=== PATIENT | female | born 1935 | race Caucasian/White ===

== ENCOUNTER 2016-11-17 05:08 | Inpatient (IN) | payer MEDICARE ==
[2016-11-17] VITALS (14 sets, daily range): BP systolic 62–231; BP diastolic 48–127; PULSE 38–120; RESP 16; TEMP 98.4; O2SAT 95–100
[~2016-11-17] VITALS: Ht 172.7 cm; Wt 55.0 kg
[~2016-11-17 05:08] MED LIST: ACET325T PO; AMIO200T PO; DIGO0.12 PO; DONE5TAB7 PO; FLUDROCORT PO; LORA1TAB12 PO; MACR100C2 PO; MECL-62 PO; METH1TAB2 PO; MILKSUS PO; MULT1TAB84 PO; PARO1TAB72 PO; POLY3350; POTA10CA PO; SERO25TA PO; WARF-58 PO
[2016-11-17] MEDS ORDERED: SODIUM CHLORIDE 0.9% FLUSH 5 ML FLUSH IVF PRN (05:45)
[2016-11-17] MEDS ORDERED: NOREPINEPHRINE 4 MG/4 ML AMP ONE (05:51)
[2016-11-17 06:21] LABS: BLOOD GAS BASE EXCESS 0.8 mmol/L (-2-2); BLOOD GAS HCO3 26 mmol/L (22-26); BLOOD GAS METHEMOGLOBIN 1.9 % (0-2); BLOOD GAS O2 HGB SATURATION 96 % (90-100); BLOOD GAS OXYGEN CONTENT 16.9 Vol % (12.0-20.0); BLOOD GAS PCO2 46 mmHg (38-42); BLOOD GAS PO2 267 mmHG (61-120); BLOOD GAS TOTAL HGB 12.1 G/DL (12.0-16.0); CRITICAL VALUE NO; OXYGEN DEVICE VENTILATOR; TEMP CORR TO 98.6
[2016-11-17 06:22] LABS: DRAW SITE RT FEMORAL; FIO2 100 %; NUMBER OF ARTERIAL PUNCTURES 1; STAT YES
[2016-11-17 06:36] LABS: AUTOMATED NEUTROPHIL # 10.1 TH/MM3 (1.8-7.7); BASOPHIL % 0.2 % (0.0-2.0); EOSINOPHIL % 0.1 % (0.0-4.0); HEMO FLAGS DIFF FINAL; LYMPH % 8.8 % (9.0-44.0); MEAN CELL VOLUME 89.1 FL (80.0-100.0); MEAN CORPUSCULAR HEMOGLOBIN 29.7 PG (27.0-34.0); MEAN CORPUSCULAR HGB CONC 33.3 % (32.0-36.0); MONO % 4.6 % (0.0-8.0); NEUT % 86.3 % (16.0-70.0); PLATELET COUNT 230 TH/MM3 (150-450); RED BLOOD COUNT 3.93 MIL/MM3 (4.00-5.30); RED CELL DISTRIBUTION WIDTH 13.9 % (11.6-17.2); WHITE BLOOD COUNT 11.7 TH/MM3 (4.0-11.0)
[2016-11-17 06:45] LABS: BACTERIA, URINE RARE /hpf; BLOOD, URINE SMALL (NEG); COMMENT (UR) CATH-CULTURE IND; CULTURE IF INDICATED CATH CULTURE IND; GLUCOSE,URINE 70 mg/dL (NEG); KETONE, URINE TRACE mg/dL (NEG); NITRITE,URINE NEG (NEG); URINE COLOR LIGHT-YELLOW (YELLW/STRAW)
[2016-11-17] MEDS ORDERED: VANCOMYCIN INJ 1,000 MG in SODIUM CHLOR 0.9% 250 ML INJ 250 ML IV ONE (06:45)
[2016-11-17] MEDS ORDERED: PIPERACIL-TAZO 3.375 GM PREMIX 50 ML IV ONE (06:45)
[2016-11-17] MEDS ORDERED: SUCCINYLCHOLINE CHLORIDE 200 MG/10 ML VIAL IV PUSH ONE (06:45)
--- NOTE | 2016-11-17 06:47 | PD ---
HPI Chief Complaint: Code Blue Time Seen by Provider: 05:37 Travel History International Travel<30 days: No Contact w/Intl Traveler<30days: No Traveled to known affect area: No History of Present Illness HPI Patient is an 81-year-old female [facility]. Patient was last seen at 2 AM, was noticed unresponsive at 5 AM by [facility] staff. EMS placed a Combitube after to intubation attempts. As EMS was coming to the hospital, patient became a cardiac. Patient is unresponsive and cannot provide any history. PFSH Past Medical History Hx Anticoagulant Therapy: Yes Atrial Fibrillation: Yes Anxiety: Yes Depression: Yes Heart Rhythm Problems: Yes (A-FIB) Cancer: No Cardiovascular Problems: Yes High Cholesterol: No Chemotherapy: No Chest Pain: No Congestive Heart Failure: No Cerebrovascular Accident: Yes (TIA 4 + Years ago) Diabetes: No Diminished Hearing: No Endocrine: No Gastrointestinal Disorders: No Genitourinary: Yes (PELVIC DYSFUNCTION, UTI) Hypertension: No Immune Disorder: No Implanted Vascular Access Dvce: No Musculoskeletal: No Neurologic: Yes Psychiatric: No Reproductive: No Respiratory: No Immunizations Current: Yes Ulcer: Yes ?: Not Menopausal: Yes : 3 Para: 3 Past Surgical History Cardiac Surgery: Yes (MITRAL VALVE REPLACEMENT) Coronary Artery Bypass Graft: Yes Gynecologic Surgery: Yes (HYSTERECTOMY partial) Hysterectomy: Yes (PARTIAL) Tonsillectomy: Yes Valve Replacement: Yes (MITRAL VALVE REPLACEMENT) Other Surgery: Yes (jj valve,cataracts bilat,hysterectomy) Social History Alcohol Use: Yes (OCCASIONALLY) Tobacco Use: No Substance Use: No Allergies-Medications (Allergen,Severity, Reaction): Coded Allergies: Sulfa (Verified Allergy, Unknown, 09/23/16) Demerol (Verified Adverse Reaction, Unknown, 09/23/16) GI UPSET, NAUSEA/VOMITING Reported Meds & Prescriptions Reported Meds & Active Scripts Active Macrobid (Nitrofurantoin Monoh/Nitrofur Macro) 100 Mg Cap 100 Mg PO BID 7 Days Reported Seroquel (Quetiapine Fumarate) 25 Mg Tab 25 Mg PO HS Warfarin 3 Mg Tab 3 Mg PO DAILY Warfarin 3 Mg Tab 3 Mg PO DAILY Amiodarone (Amiodarone HCl) 200 Mg Tab 200 Mg PO DAILY Acetaminophen 325 Mg Tab 650 Mg PO Q4-6H PRN Milk of Magnesia Liq (Magnesium Hydroxide) 400 Mg/5 Ml Susp 30 Ml PO ONCE Meclizine (Meclizine HCl) 25 Mg Tab 25 Mg PO TID PRN Paroxetine (Paroxetine HCl) 20 Mg Tab 20 Mg PO DAILY Potassium Chloride ER (Potassium Chloride) 10 Meq Cap 10 Meq PO DAILY Polyethylene Glycol 3350 1 Pow Pow Multivitamin Adults (Multiple Vitamins W/ Minerals) 1 Tab 1 Tab PO DAILY Methenamine Hippurate 1 Gm Tab 1 Gm PO BID Lorazepam 1 Mg Tab 1 Mg PO HS [Fludrocort] 0.1 Mg PO BID Donepezil 5 Mg Tab 5 Mg PO HS Digoxin 0.125 Mg Tab 0.125 Mg PO DAILY Review of Systems ROS Limitations: Clinical Condition, Unresponsive Physical Exam Exam Limitations: Clinical Condition Narrative GENERAL: Unresponsive SKIN: Warm and dry. HEAD: Atraumatic. Normocephalic. EYES: Fixed and dilated ENT: Mucous membranes pink and moist. NECK: Trachea midline. No JVD. CARDIOVASCULAR: Irregular RESPIRATORY: Clear to auscultation. Breath sounds equal bilaterally. GASTROINTESTINAL: Distended, full of air. MUSCULOSKELETAL: No obvious deformities. No clubbing. No cyanosis. No edema. NEUROLOGICAL: Unresponsive, does not move any of her extremities. Data Data Last Documented VS Vital Signs Date Time Temp Pulse Resp B/P Pulse Ox O2 Delivery O2 Flow Rate FiO2 11/17/16 06:43 100 100 11/17/16 06:30 112 16 117/67 Ventilator 15 11/17/16 05:37 98.4 Orders Complete Blood Count With Diff (11/17/16 05:37) Comprehensive Metabolic Panel (11/17/16 05:37) Creatine Kinase (Cpk) (11/17/16 05:37) Prothrombin Time / Inr (Pt) (11/17/16 05:37) Act Partial Throm Time (Ptt) (11/17/16 05:37) Troponin I (11/17/16 05:37) Lactic Acid Sepsis Protocol (11/17/16 05:37) Urinalysis - C+S If Indicated (11/17/16 05:37) Ua Includes Microscopic (11/17/16 05:37) Blood Culture (11/17/16 05:37) Chest, Single Ap (11/17/16 05:37) Ct Brain W/O Iv Contrast(Rout) (11/17/16 05:37) Blood Glucose (11/17/16 05:37) Ecg Monitoring (11/17/16 05:37) Iv Access Insert/Monitor (11/17/16 05:37) Oximetry (11/17/16 05:37) Oxygen Administration (11/17/16 05:37) Urinary Catheter Insert/Apply (11/17/16 05:37) Sodium Chloride 0.9% Flush (Ns Flush) (11/17/16 05:45) Electrocardiogram (11/17/16 05:37) Norepinephrine Inj (Levophed Inj) (11/17/16 05:51) Arterial Blood Gas (Abg) (11/17/16 06:14) Succinylcholine Inj (Quelicin Inj) (11/17/16 06:45) Piperacil-Tazo 3.375 Gm Premix (Zosyn 3. (11/17/16 06:45) Vancomycin Inj (Vancomycin Inj) (11/17/16 06:45) Type And Screen (11/17/16 06:37) Urine Culture (11/17/16 05:30) Blood Product Administration .UPON TRANSFUSION (11/17/16 06:49) Sodium Chlor 0.9% 250 Ml Inj (Ns 250 Ml (11/17/16 07:00) Admit Order (Ed Use Only) (11/17/16 ) Labs Laboratory Tests Test 11/17/16 11/17/16 11/17/16 11/17/16 05:30 06:13 06:14 06:17 Urine Color LIGHT-YELLOW Urine Turbidity CLEAR Urine pH 8.0 Urine Specific [place] 1.007 Urine Protein 30 mg/dL Urine Glucose (UA) 70 mg/dL Urine Ketones TRACE mg/dL Urine Occult Blood SMALL Urine Nitrite NEG Urine Bilirubin NEG Urine Urobilinogen LESS THAN 2.0 MG/DL Urine Leukocyte Esterase NEG Urine RBC 2 /hpf Urine WBC LESS THAN 1 /hpf Urine Bacteria RARE /hpf Microscopic Urinalysis Comment CATH-CULTURE IND Sodium Level 139 MEQ/L Potassium Level 2.6 MEQ/L Chloride Level 99 MEQ/L Carbon Dioxide Level 27.3 MEQ/L Anion Gap 13 MEQ/L Blood Urea Nitrogen 11 MG/DL Creatinine 1.10 MG/DL Estimat Glomerular Filtration 48 ML/MIN Rate Random Glucose 277 MG/DL Calcium Level 7.6 MG/DL Total Bilirubin 0.8 MG/DL Aspartate Amino Transf 49 U/L (AST/SGOT) Alanine Aminotransferase 51 U/L (ALT/SGPT) Alkaline Phosphatase 34 U/L Total Creatine Kinase 72 U/L Troponin I 0.12 NG/ML Total Protein 6.6 GM/DL Albumin 3.4 GM/DL White Blood Count 11.7 TH/MM3 Red Blood Count 3.93 MIL/MM3 Hemoglobin 11.7 GM/DL Hematocrit 35.0 % Mean Corpuscular Volume 89.1 FL Mean Corpuscular Hemoglobin 29.7 PG Mean Corpuscular Hemoglobin 33.3 % Concent Red Cell Distribution Width 13.9 % Platelet Count 230 TH/MM3 Mean Platelet Volume 7.3 FL Neutrophils (%) (Auto) 86.3 % Lymphocytes (%) (Auto) 8.8 % Monocytes (%) (Auto) 4.6 % Eosinophils (%) (Auto) 0.1 % Basophils (%) (Auto) 0.2 % Neutrophils # (Auto) 10.1 TH/MM3 Lymphocytes # (Auto) 1.0 TH/MM3 Monocytes # (Auto) 0.5 TH/MM3 Eosinophils # (Auto) 0.0 TH/MM3 Basophils # (Auto) 0.0 TH/MM3 CBC Comment DIFF FINAL Differential Comment Prothrombin Time 49.0 SEC Prothromb Time International 4.2 RATIO Ratio Activated Partial 36.2 SEC Thromboplast Time Blood Gas Puncture Site RT FEMORAL Blood Gas Patient Temperature 98.6 Blood Gas HCO3 26 mmol/L Blood Gas Base Excess 0.8 mmol/L Blood Gas Oxygen Saturation 96 % Arterial Blood pH 7.36 Arterial Blood Partial 46 mmHg Pressure CO2 Arterial Blood Partial 267 mmHG Pressure O2 Arterial Blood Oxygen Content 16.9 Vol % Arterial Blood 2.0 % Carboxyhemoglobin Arterial Blood Methemoglobin 1.9 % Blood Gas Hemoglobin 12.1 G/DL Oxygen Delivery Device VENTILATOR Blood Gas Ventilator Setting Blood Gas Inspired Oxygen 100 % Lactic Acid Level 3.8 mmol/L Test 11/17/16 11/17/16 06:20 06:49 Blood Type A POSITIVE Antibody Screen NEGATIVE Blood Bank Comment [facility] Medical Decision Making Medical Screen Exam Complete: Yes Emergency Medical Condition: Yes Medical Record Reviewed: Yes Interpretation(s) ECG shows sinus tachycardia with frequent PVCs. Differential Diagnosis ICH versus ACS versus sepsis Narrative Course Patient is a 81-year-old female brought in by EMS unresponsive. EMS was bagging the patient via Combitube. Upon transfer to the hospital stretcher, patient lost her pulse. CPR was begun immediately. Patient given 1 dose of epi. After about 3 minutes, she had return of spontaneous circulation. Patient was then intubated without incident. She is placed on the ventilator. Monitored on the cardiac catheterization technician. There was crepitus present in her neck presumably from 2 prior intubation attempts by EMS/ CPR, so femoral line was placed. Patient became hypotensive, she was started on Levophed. Chest x-ray performed confirmed tube placement. Labs sent show an INR of 4.2, lactic acid is 3.8. Patient taken for CT of her head which showed massive intracranial bleed, with midline shift. FFP ordered for Coumadin reversal. Patient admitted for further management. Critical Care Narrative Aggregate critical care time was 60 minutes. Time to perform other separately billable procedures was not included in the critical care time. My time did not include minutes spent treating any other patients simultaneously or on activities that did not directly contribute to the patient's treatment. The services I provided to this patient were to treat and/or prevent clinically significant deterioration that could result in: Morbidity and mortality I provided critical care services requiring my management, as noted below: Chart data review, documentation time, medication orders and management, vital sign assessments/reviewing monitor data, ordering and reviewing lab tests, ordering and interpreting/reviewing x-rays and diagnostic studies, care of the patient and discussion of the patient with the admitting physicians. Procedures Procedure Narrative After the risks and benefits were discussed the following procedure was performed: INTUBATION: The patient was put in optimal position for the procedure. Rapid sequence intubation was initiated by me using 80 milligrams of succinylcholine IV. The patient was intubated with a 8.0 cuffed endotracheal tube. Tube placement was confirmed by visualization of the tube and balloon passing through the cords, capnometry and subsequent chest x-ray. Breath sounds were equal and well aerated bilaterally postintubation. No breath sounds over stomach. Patient tolerated procedure well. CENTRAL VENOUS LINE: The site was prepped with Betadine and sterilely draped. It was infiltrated with 1% lidocaine plain. The deep vein was cannulated using normal Seldinger technique. A triple lumen central line was placed in the left femoral vein site and secured with simple interrupted suture. The site was sterilely dressed. The patient tolerated the procedure well. Diagnosis Primary Impression: Intracranial bleed Additional Impressions: Cardiac arrest Respiratory failure Qualified Code: J96.00 - Acute respiratory failure, unspecified whether with hypoxia or hypercapnia Admitting Information Admitting Physician Requests: Admit Condition: Serious Jossy Ren MD Nov 17, 2016 06:47
[2016-11-17 06:51] LABS: APTT (PATIENT) 36.2 SEC (24.3-30.1); INTERNATIONAL NORMALIZED RATIO 4.2 RATIO
[2016-11-17] MEDS ORDERED: SODIUM CHLOR 0.9% 250 ML INJ 250 ML IV ONE (07:00)
--- NOTE | 2016-11-17 07:01 | RADRPT ---
EXAM DATE/TIME: 11/17/2016 06:14 [facility] COMPARISON: CHEST SINGLE AP, September 23, 2016, 22:34. INDICATIONS : E-T tube placement. MEDICAL HISTORY : Stroke. Cardiovascular disease. Myocardial infarction. SURGICAL HISTORY : Hysterectomy. CABG. ENCOUNTER: Initial ACUITY: 1 day PAIN SCORE: Non-responsive. LOCATION: Bilateral chest FINDINGS: The cardiac silhouette is enlarged in transverse diameter. Endotracheal tube is in good position abov e the campbell. There are biapical pneumothoraces without tension. There is extensive subcutaneous emph ysema in the super clavicular regions bilaterally with pneumomediastinum. There is no evidence of pn eumonia. CONCLUSION: 1. Satisfactory position of endotracheal tube as above. Biapical pneumothoraces without tension. Exte nsive subcutaneous emphysema. 2. Pneumomediastinum. Esvin Valera MD on November 17, 2016 at 6:54 Board Certified Radiologist. This report was verified electronically. 3.
--- NOTE | 2016-11-17 07:05 | RADRPT ---
EXAM DATE/TIME: 11/17/2016 06:39 [facility] COMPARISON: CT BRAIN W/O CONTRAST, September 29, 2016, 16:11. INDICATIONS : Altered mental status. RADIATION DOSE: 56.35 CTDIvol (mGy) MEDICAL HISTORY : Non-responsive. SURGICAL HISTORY : Non-responsive. ENCOUNTER: Initial ACUITY: 1 day PAIN SCALE: Non-responsive LOCATION: cranial TECHNIQUE: Multiple contiguous axial images were obtained of the head. Using automated exposure control and adj ustment of the mA and/or kV according to patient size, radiation dose was kept as low as reasonably a chievable to obtain optimal diagnostic quality images. FINDINGS: There is a large extra-axial fluid collection over the right cerebral convexity measuring 2.1 cm in d iameter with marked mass effect and midline shift of 1.2 cm. There is uncal herniation with hemorrhag e involving the kevin at the level of the colliculi. There is extensive chronic ischemic change in the periventricular white matter. The cerebellar hemispheres are unremarkable. A small parafalcine subdu ral hematoma is also present. CONCLUSION: 1. Large acute extra-axial fluid collection as above with marked mass effect and herniation. 2. Brainstem hemorrhage is also present. Esvin Valera MD on November 17, 2016 at 6:59 Board Certified Radiologist. This report was verified electronically.
[2016-11-17 07:12] LABS: ALKALINE PHOSPHATASE 34 U/L (45-117); ALT (GPT) 51 U/L (10-53); ANION GAP 13 MEQ/L (5-15); AST (GOT) 49 U/L (15-37); BICARBONATE 27.3 MEQ/L (21.0-32.0); BLOOD UREA NITROGEN 11 MG/DL (7-18); CHLORIDE 99 MEQ/L (98-107); GLOMERULAR FILTRATION RATE 48 ML/MIN (>89); SODIUM (NA) 139 MEQ/L (136-145); TOTAL BILIRUBIN ADULT 0.8 MG/DL (0.2-1.0)
[2016-11-17 07:21] LABS: CREATINE KINASE 72 U/L (26-192)
[2016-11-17 07:22] LABS: POTASSIUM 2.6 MEQ/L (3.5-5.1)
[2016-11-17] MEDS ORDERED: LORazepam 2 MG/ML VIAL IV PUSH ONE (07:45)
[2016-11-17] MEDS ORDERED: MORPHINE SULFATE 8 MG/ML INJ IV PUSH ONE (07:46)
--- NOTE | 2016-11-17 07:47 | HHI.HP ---
HPI Service Critical Care Medicine Primary Care Physician Unknown Admission Diagnosis Intracranial hemmorhage Diagnosis: Chief Complaint: unresponsive Travel History International Travel<30 Days: No Contact w/Intl Traveler <30 Da: No Traveled to Known Affected Are: No History of Present Illness This is an 81-year-old female who per the chart has a history of mitral valve replacement and chronic anticoagulation who presented unresponsive at 5 AM. EMS was called and placed Combitube. At this point she went into cardiac arrest and out of hospital CPR was performed, and ROSC was obtained. She was brought into the [place] emergency department where she was intubated. Stat head CT demonstrated massive intracranial hemorrhage with evidence of mass effect on the third and fourth ventricles with early transtentorial herniation. Critical-care medicine was consulted for evaluation and management of her life -threatening intracranial hemorrhage. Review of Systems ROS Limitations: Clinical Condition, Intubated, Altered Mental Status, Unresponsive Past Family Social History Allergies: Coded Allergies: Sulfa (Verified Allergy, Unknown, 09/23/16) Demerol (Verified Adverse Reaction, Unknown, 09/23/16) GI UPSET, NAUSEA/VOMITING Past Medical History Unobtainable secondary to clinical condition. Per chart review: Atrial fibrillation Anxiety Depression Anticoagulation use TIA 4 years ago Pelvic dysfunction UTI Past Surgical History Unobtainable secondary to clinical condition. Per chart review: Mitral valve replacement CABG Hysterectomy Tonsillectomy Cataracts Reported Medications Unobtainable secondary to clinical condition. Per chart review: Seroquel (Quetiapine Fumarate) 25 Mg Tab 25 Mg PO HS Warfarin 3 Mg Tab 3 Mg PO DAILY Warfarin 3 Mg Tab 3 Mg PO DAILY Amiodarone (Amiodarone HCl) 200 Mg Tab 200 Mg PO DAILY Acetaminophen 325 Mg Tab 650 Mg PO Q4-6H PRN Milk of Magnesia Liq (Magnesium Hydroxide) 400 Mg/5 Ml Susp 30 Ml PO ONCE Meclizine (Meclizine HCl) 25 Mg Tab 25 Mg PO TID PRN Paroxetine (Paroxetine HCl) 20 Mg Tab 20 Mg PO DAILY Potassium Chloride ER (Potassium Chloride) 10 Meq Cap 10 Meq PO DAILY Polyethylene Glycol 3350 1 Pow Pow Multivitamin Adults (Multiple Vitamins W/ Minerals) 1 Tab 1 Tab PO DAILY Methenamine Hippurate 1 Gm Tab 1 Gm PO BID Lorazepam 1 Mg Tab 1 Mg PO HS [Fludrocort] 0.1 Mg PO BID Donepezil 5 Mg Tab 5 Mg PO HS Digoxin 0.125 Mg Tab 0.125 Mg PO DAILY Active Ordered Medications See MAR Family History Unknown and unobtainable secondary to the patient's clinical condition. Social History Unobtainable secondary to clinical condition. Per chart review: occasional etoh, no tob. Physical Exam Vital Signs Vital Signs Date Time Temp Pulse Resp B/P Pulse Ox O2 Delivery O2 Flow Rate FiO2 11/17/16 06:43 100 100 11/17/16 06:30 112 16 117/67 100 Ventilator 15 11/17/16 06:21 100 Ventilator 15 11/17/16 06:15 120 16 120/70 100 Ventilator 15 11/17/16 06:00 98 16 91/54 100 Ventilator 15 11/17/16 05:50 112 16 62/48 100 Ventilator 15 11/17/16 05:40 110 16 79/55 100 Ventilator 15 11/17/16 05:37 98.4 38 16 231/114 95 11/17/16 05:30 96 100 11/17/16 05:30 100 16 119/80 100 Ventilator 15 11/17/16 05:29 98 11/17/16 05:20 88 16 215/127 99 Ventilator 15 11/17/16 05:10 38 16 231/114 98 Ventilator 15 Physical Exam GENERAL: Elderly female, lying in bed, intubated, critically ill HEENT: NCAT. Pupils 4 mm, conjugate, minimally reactive. Negative ocular cephalic reflex. mucous membranes moist. NECK: Trachea is midline. There is no JVD. CHEST: Equal chest rise. Clear to auscultation. CARDIOVASCULAR: Tachycardic rate, regular rhythm with frequent PVCs. On norepinephrine. ABDOMEN: Soft, nontender, nondistended. No guarding. MUSCULOSKELETAL: Peripheral edema. Distal pulses 2+. NEUROLOGICAL: GCS 3. RASS -5. No movement at all to deep nail bed pressure in all 4 extremities. Negative gag, negative corneals, positive weak cough. Negative ocular cephalic reflex. Laboratory Laboratory Tests Test 11/17/16 11/17/16 11/17/16 05:30 06:14 06:17 Urine Color LIGHT-YELLOW Urine Turbidity CLEAR Urine pH 8.0 Urine Specific [place] 1.007 Urine Protein 30 Urine Glucose (UA) 70 Urine Ketones TRACE Urine Occult Blood SMALL Urine Nitrite NEG Urine Bilirubin NEG Urine Urobilinogen LESS THAN 2.0 Urine Leukocyte Esterase NEG Urine RBC 2 Urine WBC LESS THAN 1 Urine Bacteria RARE Microscopic Urinalysis Comment CATH-CULTURE IND White Blood Count 11.7 Red Blood Count 3.93 Hemoglobin 11.7 Hematocrit 35.0 Mean Corpuscular Volume 89.1 Mean Corpuscular Hemoglobin 29.7 Mean Corpuscular Hemoglobin 33.3 Concent Red Cell Distribution Width 13.9 Platelet Count 230 Mean Platelet Volume 7.3 Neutrophils (%) (Auto) 86.3 Lymphocytes (%) (Auto) 8.8 Monocytes (%) (Auto) 4.6 Eosinophils (%) (Auto) 0.1 Basophils (%) (Auto) 0.2 Neutrophils # (Auto) 10.1 Lymphocytes # (Auto) 1.0 Monocytes # (Auto) 0.5 Eosinophils # (Auto) 0.0 Basophils # (Auto) 0.0 CBC Comment DIFF FINAL Differential Comment Prothrombin Time 49.0 Prothromb Time International 4.2 Ratio Activated Partial 36.2 Thromboplast Time Blood Gas Puncture Site RT FEMORAL Blood Gas Patient Temperature 98.6 Blood Gas HCO3 26 Blood Gas Base Excess 0.8 Blood Gas Oxygen Saturation 96 Arterial Blood pH 7.36 Arterial Blood Partial 46 Pressure CO2 Arterial Blood Partial 267 Pressure O2 Arterial Blood Oxygen Content 16.9 Arterial Blood 2.0 Carboxyhemoglobin Arterial Blood Methemoglobin 1.9 Blood Gas Hemoglobin 12.1 Oxygen Delivery Device VENTILATOR Blood Gas Ventilator Setting Blood Gas Inspired Oxygen 100 Lactic Acid Level 3.8 Date/Time Procedure Status Source Growth 11/17/16 06:15 Aerobic Blood Culture Received Blood Peripheral Pending 11/17/16 06:15 Anaerobic Blood Culture Received Blood Peripheral Pending 11/17/16 05:30 Urine Culture Received Urine Catheterized Urine Pending Result Diagram: 11/17/16 0614 Assessment and Plan Assessment and Plan Assessment: This is an 81-year-old female who has now sustained a massive intracranial hemorrhage with mass effect whose course has been complicated by cardiac arrest requiring CPR. I have discussed the case with Dr. Ramsey, neurosurgery, and we agree she is not a surgical candidate. This is a devastating injury, and based on the [facility] journal article from 2015, intracranial pathology which leads to out of hospital cardiac arrest has a 0% survival to hospital discharge, let alone any recoverable neurologic function. I have spoken with the patient's son Jose Gonsalez, who is her medical decision maker, as well as her primary care doctor, Dr. Vicente, and everyone is in agreement that her wishes would be for palliation and comfort in this situation. Thus, in keeping with her wishes, we will make the patient DNR/DNI, and we will proceed with palliative withdraw of care. Of note, she does not have any , and has two children, and Jose is the documented medical decision maker. Active Problems: Massive Intracranial Hemorrhage with mass effect Transtentorial Herniation s/p out of hospital cardiac arrest Plan: --morphine 10mg iv x 1 --ativan 10mg iv x 1 for comfort. --proceed with palliative withdraw and extubation --DNR/DNI. Code Status DNR/DNI Discussed Condition With Dr. Ramsey, neurosurgery Dr. Vicente, her primary care doctor Jose Gonsalez, her medical decision maker and son. ER physician ER bedside Emmanuel Howard MD Nov 17, 2016 07:47
--- NOTE | 2016-11-17 08:21 | DEATH SUM ---
Pronouncement Date Pronounced : Nov 17, 2016 Time Of : 08:19 Pronouncement Called to pronounce of patient. Identified patient as Ana Gonsalez with wrist band MR# [id number]. Patient with no cardiac activity in 2 separate leads and no palpable/auscible cardiac activity. Patient with no spontaneous respirations, no corneal reflex or response to painful stimuli. Pupils fixed and dilated. Preliminary Cause of : Cardiac arrest Emmanuel Caldwell MD Nov 17, 2016 08:21
[2016-11-17 08:22] LABS: LACTIC ACID GHOST NOT REPORTABLE
--- NOTE | 2016-11-17 08:23 | HHI.DS ---
Summary Note Date of : Nov 17, 2016 Time Of : 08:19 Admission Date Nov 17, 2016 at 06:56 Admitting Diagnosis Intracranial hemmorhage Diagnosis at Time of : Brief History This is an 81-year-old female who per the chart has a history of mitral valve replacement and chronic anticoagulation who presented unresponsive at 5 AM. EMS was called and placed Combitube. At this point she went into cardiac arrest and out of hospital CPR was performed, and ROSC was obtained. She was brought into the [place] emergency department where she was intubated. Stat head CT demonstrated massive intracranial hemorrhage with evidence of mass effect on the third and fourth ventricles with early transtentorial herniation. Critical-care medicine was consulted for evaluation and management of her life -threatening intracranial hemorrhage. CBC/BMP: 11/17/16 0614 11/17/16 0613 Significant Findings Laboratory Tests Test 11/17/16 11/17/16 11/17/16 11/17/16 05:30 06:13 06:14 06:17 Urine Protein 30 mg/dL (NEG-TRACE) Urine Glucose (UA) 70 mg/dL (NEG) Urine Ketones TRACE mg/dL (NEG) Urine Occult Blood SMALL (NEG) Urine Bacteria RARE /hpf (NONE) Potassium Level 2.6 MEQ/L (3.5-5.1) Creatinine 1.10 MG/DL (0.50-1.00) Estimat Glomerular Filtration 48 ML/MIN (>89) Rate Random Glucose 277 MG/DL (74-106) Calcium Level 7.6 MG/DL (8.5-10.1) Aspartate Amino Transf 49 U/L (15-37) (AST/SGOT) Alkaline Phosphatase 34 U/L (45-117) Troponin I 0.12 NG/ML (0.02-0.05) White Blood Count 11.7 TH/MM3 (4.0-11.0) Red Blood Count 3.93 MIL/MM3 (4.00-5.30) Neutrophils (%) (Auto) 86.3 % (16.0-70.0) Lymphocytes (%) (Auto) 8.8 % (9.0-44.0) Neutrophils # (Auto) 10.1 TH/MM3 (1.8-7.7) Prothrombin Time 49.0 SEC (9.8-11.6) Activated Partial 36.2 SEC Thromboplast Time (24.3-30.1) Arterial Blood pH 7.36 (7.380-7.420) Arterial Blood Partial 46 mmHg (38-42) Pressure CO2 Arterial Blood Partial 267 mmHG Pressure O2 (61-120) Lactic Acid Level 3.8 mmol/L (0.4-2.0) Hospital Course Her intracranial hemorrhage is consistent with a non-survivable insult. I spoke with Dr. Ramsey who agrees. I spoke with her primary care doctor, Dr. Vicente, who also agrees, and agrees that she would want to be comfortable. I spoke with Naveen, her son and medical decision maker. He wishes to make her DNR/ DNI and pursue comfort measures and palliative extubation, which would be her wishes in this case. Congruent with her wishes, she was made DNR/DNI. She was given pain and anxiety medicines. She was visibly comfortable and not in pain or distress. I extubated her, and her bedside RN and myself remained at bedside with her until she , at 08:19. Emmanuel Caldwell MD Nov 17, 2016 08:23
--- NOTE | 2016-11-17 16:08 | EKG ---
Date Performed: 11/17/2016 Time Performed: 06:25:06 PTAGE: 81 years EKG: SINUS TACHYCARDIA WITH FIRST DEGREE AV BLOCK WITH FREQUENT VENTRICULAR PREMATURE COMPLEXES INTRAVENTRICULAR CONDUCTION DELAY ABNORMAL ECG PREVIOUS TRACING : 09/23/2016 21.38 DOCTOR: Palmer Felix Interpretating Date/Time 11/17/2016 16:06:05
== END 2016-11-17 10:37 | disposition expired | DRG 64 ==
LOC: NEPE 05:08 → UNDOADMIN 06:56 → NEDA 06:56 → UNDODISIN 10:37
PROVIDERS: ADMIT Internal Medicine Critical Care Medicine; ATTEND Internal Medicine Critical Care Medicine
PROC: 5A1935Z Respiratory Ventilation, Less than 24 Consecutive Hours (ICD-10-PCS; principal; 2016-11-17)
PROC: 0BH17EZ Insertion of Endotracheal Airway into Trachea, Via Natural or Artificial Opening (ICD-10-PCS; 2016-11-17)
PROC: 5A12012 Performance of Cardiac Output, Single, Manual (ICD-10-PCS; 2016-11-17)
PROC: 06HN33Z Insertion of Infusion Device into Left Femoral Vein, Percutaneous Approach (ICD-10-PCS; 2016-11-17)
DX: I62.9 Nontraumatic intracranial hemorrhage, unspecified (principal); G93.5 Compression of brain; I46.9 Cardiac arrest, cause unspecified; J96.00 Acute respiratory failure, unspecified whether with hypoxia or hypercapnia; I95.9 Hypotension, unspecified; I48.91 Unspecified atrial fibrillation; F41.9 Anxiety disorder, unspecified; F32.9 Major depressive disorder, single episode, unspecified; Z66 Do not resuscitate; Z79.01 Long term (current) use of anticoagulants; Z86.73 Personal history of transient ischemic attack (TIA), and cerebral infarction without residual deficits; Z95.1 Presence of aortocoronary bypass graft; Z95.2 Presence of prosthetic heart valve
CPT/HCPCS: 31500; 36556; 36600; 51702; 70450; 71010; 80053; 81001; 82550; 82805; 83605; 84484; 85025; 85610; 85730; 86850; 86900; 86901; 86927; 87040; 87086; 93005; 94002; J2060; J2270